=== PATIENT | male | born 1955 | race Caucasian/White ===

== ENCOUNTER 2016-06-06 18:28 | Emergency (ER) | payer BC, OTHER ==
[2016-06-06 19:04] VITALS: BP 160/91
--- NOTE | 2016-06-06 19:17 | UC ---
Throat Pain/Nasal Blaine HPI - HPI Summary HPI Summary: 60 yo male with a 1-2 day hx of sore throat/swollen glands and CRAFT anorexia no f/c no n/v - History of Current Complaint Chief Complaint: UCGeneralIllness Stated Complaint: SORE THROAT Time Seen by Provider: 06/06/16 19:04 Onset/Duration: Sudden Onset, Gradual Onset, Lasting Days Severity: Moderate Pain Intensity: 5 Pain Scale Used: 0-10 Numeric - Allergies/Home Medications Allergies/Adverse Reactions: Allergies Allergy/AdvReac Type Severity Reaction Status Date / Time No Known Allergies Allergy Verified 06/06/16 18:58 Home Medications: Home Medications Citalopram TAB* [Celexa TAB*] 1 tab DAILY 06/06/16 [History Confirmed 06/06/16] Gabapentin CAP(*) [Neurontin 100 mg CAP(*)] 1 cap 06/06/16 [History] Meloxicam 1 tab 06/06/16 [History] Tadalafil [Cialis] 1 tab 06/06/16 [History] diPHENhydraMINE PO* [Benadryl PO*] 1 tab 06/06/16 [History] PMH/Surg Hx/FS Hx/Imm Hx Previously Healthy: Yes - Surgical History Surgical History: Yes Surgery Procedure, Year, and Place: PROSTECTOMY. RIGHT ROTATOR CUFF REPAIR. INGUINAL HERNIA REPAIR X2. VARICOSE VEINS REMOVED FROM ARMX2 - Family History Known Family History: Positive: Cardiac Disease, Hypertension - Social History Alcohol Use: Rare Substance Use Type: None Smoking Status (MU): Never Smoked Tobacco Review of Systems Constitutional: Negative Skin: Negative Eyes: Negative ENT: Sore Throat Respiratory: Negative Cardiovascular: Negative Gastrointestinal: Negative Genitourinary: Negative Motor: Negative Neurovascular: Negative Musculoskeletal: Negative Neurological: Headache Psychological: Negative All Other Systems Reviewed And Are Negative: Yes Physical Exam Triage Information Reviewed: Yes Appearance: Well-Appearing, No Pain Distress, Well-Nourished Vital Signs: Initial Vital Signs Temp 97.4 F 06/06/16 19:01 Pulse 63 06/06/16 19:01 Resp 18 06/06/16 19:01 BP 160/91 06/06/16 19:01 Pulse Ox 98 06/06/16 19:01 Vital Signs Reviewed: Yes Eyes: Positive: Conjunctiva Clear ENT: Positive: Hearing grossly normal, Pharyngeal erythema, TMs normal, Other: - midline uvula. Negative: Nasal congestion, Nasal drainage, Tonsillar swelling , Tonsillar exudate, Trismus, Muffled/hoarse voice Dental: Positive: Cervical Lymphadenopathy Neck: Positive: Supple, Enlarged Nodes @ - tender ant cervical nodes Respiratory: Positive: Lungs clear, Normal breath sounds, No respiratory distress Cardiovascular: Positive: RRR, No Murmur, Pulses Normal Musculoskeletal: Positive: ROM Intact, No Edema Neurological: Positive: Alert Psychological Exam: Normal Skin Exam: Normal Throat Pain/Nasal Course/Dx - Differential Dx/Diagnosis Provider Diagnoses: acute pharyngitis Discharge - Discharge Plan Condition: Stable Disposition: HOME Patient Education Materials: Pharyngitis (ED) Referrals: Rena Xiong [Primary Care Provider] - 3 Days (if not better) Additional Instructions: rest fluids tylenol or advil
[2016-06-06] MEDS ORDERED: Cephalexin CAP* 500 MG PO ONE (19:35)
[2016-06-06] MEDS ORDERED: Cephalexin CAP* 500 MG ONE (19:44)
[2016-06-06] MEDS ORDERED: Cephalexin CAP* 500 MG PO SCH (21:00)
== END 2016-06-06 19:58 | disposition home or self-care (01) ==
LOC: UCEAST 18:28
DX: J02.9 Acute pharyngitis, unspecified (principal); R59.9 Enlarged lymph nodes, unspecified; R51 Headache; R63.0 Anorexia
CPT/HCPCS: 87651; 99212; A9270-GY; G0463

== ENCOUNTER 2016-09-13 10:06 | Emergency (ER) | payer BC, OTHER ==
[2016-09-13 10:30] VITALS: BP 130/77
--- NOTE | 2016-09-13 11:02 | UC ---
Throat Pain/Nasal Blaine HPI - HPI Summary HPI Summary: This is a 61 yo gentleman with GERD, depression and h/o prostate CA who presented with a 2-3 d history of sinus congestion. No cough, SOB. No ST. No fevers. He has been taking Flonase and Sudafed for the last 24 hrs with come relief. Work colleagues have been sick recently with similar sx's - History of Current Complaint Chief Complaint: UCGeneralIllness Stated Complaint: SINUS COMPLAINT - Allergies/Home Medications Allergies/Adverse Reactions: Allergies Allergy/AdvReac Type Severity Reaction Status Date / Time No Known Allergies Allergy Verified 09/13/16 10:21 PMH/Surg Hx/FS Hx/Imm Hx GI/ History Of: Reports: Gastroesophageal Reflux Psychological History Of: Reports: Depression Cancer History Of: Reports: Prostate Cancer - Surgical History Surgical History: Yes Surgery Procedure, Year, and Place: PROSTECTOMY. RIGHT ROTATOR CUFF REPAIR. INGUINAL HERNIA REPAIR X2. VARICOSE VEINS REMOVED FROM [facility]2 - Family History Known Family History: Positive: Cardiac Disease, Hypertension - Social History Alcohol Use: Daily Alcohol Amount: 2 beers/ day Substance Use Type: None Smoking Status (MU): Never Smoked Tobacco - Immunization History Most Recent Influenza Vaccination: 2016 Review of Systems Constitutional: Negative Skin: Negative Eyes: Negative ENT: Nasal Discharge Respiratory: Negative Cardiovascular: Negative Gastrointestinal: Negative Genitourinary: Negative Motor: Negative Neurovascular: Negative Musculoskeletal: Negative Neurological: Negative Psychological: Negative All Other Systems Reviewed And Are Negative: Yes Physical Exam Triage Information Reviewed: Yes Appearance: Well-Appearing Vital Signs: Initial Vital Signs Temp 98.8 F 09/13/16 10:23 Pulse 79 09/13/16 10:23 Resp 18 09/13/16 10:23 BP 130/77 09/13/16 10:23 Pulse Ox 97 09/13/16 10:23 Vital Signs Reviewed: Yes ENT: Positive: Pharynx normal, Nasal congestion, TM dull, Other: - mild sinus TTP diffusely across both sides of his face. Negative: Tonsillar swelling, Tonsillar exudate Neck: Positive: Supple, Nontender Respiratory: Positive: Chest non-tender, Lungs clear, Normal breath sounds Cardiovascular: Positive: RRR, No Murmur Skin Exam: Normal Throat Pain/Nasal Course/Dx - Course Course Of Treatment: 61 yo gentleman with 2 d h/o congestion without fever. Likely viral. Recommend continued use of decongestants and additional supportive care measures. - Differential Dx/Diagnosis Differential Diagnosis/HQI/PQRI: Laryngitis, Pharyngitis, Sinusitis, Tonsillitis , URI Provider Diagnoses: URI Discharge - Discharge Plan Condition: Stable Disposition: HOME Patient Education Materials: Cold Symptoms (ED) Referrals: Rena Xiong [Primary Care Provider] - If Needed Additional Instructions: Activity: As tolerated Instructions: 1. Continue Sudafed and Flonase as you have been 2. Symptoms should improve in 5-7 days
== END 2016-09-13 11:02 | disposition home or self-care (01) ==
LOC: UCEAST 10:06
DX: J06.9 Acute upper respiratory infection, unspecified (principal); K21.9 Gastro-esophageal reflux disease without esophagitis; F32.9 Major depressive disorder, single episode, unspecified; Z85.46 Personal history of malignant neoplasm of prostate
CPT/HCPCS: 99211; G0463

== ENCOUNTER 2017-12-31 09:03 | Emergency (ER) | payer BC, OTHER ==
[2017-12-31 09:25] VITALS: BP 147/82
--- NOTE | 2017-12-31 09:48 | UC ---
Ear Complaint HPI - HPI Summary HPI Summary: L ear pain and pressure x 3 days and swollen glands on L side of neck. + head cold but no sore throat. - History of Current Complaint Chief Complaint: UCEar Stated Complaint: EAR COMPLAINT Time Seen by Provider: 12/31/17 09:41 Hx Obtained From: Patient Onset/Duration: Gradual Onset Pain Intensity: 7 Aggravating Factors: Nothing Alleviating Factors: Nothing Associated Signs/Symptoms: Negative: Discharge, Hearing Loss, Foreign Body Sensation, Trauma to Ear - Allergies/Home Medications Allergies/Adverse Reactions: Allergies Allergy/AdvReac Type Severity Reaction Status Date / Time No Known Allergies Allergy Verified 12/31/17 09:21 PMH/Surg Hx/FS Hx/Imm Hx GI/ History: Gastroesophageal Reflux Psychological History: Depression - Surgical History Surgical History: Yes Surgery Procedure, Year, and Place: PROSTECTOMY. RIGHT ROTATOR CUFF REPAIR. INGUINAL HERNIA REPAIR X2. VARICOSE VEINS REMOVED FROM [facility]MX2 - Family History Known Family History: Positive: Cardiac Disease, Hypertension - Social History Lives: With Family Alcohol Use: Daily Alcohol Amount: 2 beers/ day Substance Use Type: None Smoking Status (MU): Never Smoked Tobacco - Immunization History Most Recent Influenza Vaccination: 2016 Vaccination Up to Date: Yes Review of Systems Constitutional: Negative Skin: Negative Eyes: Negative ENT: Ear Ache - L, Sinus Congestion Respiratory: Negative Cardiovascular: Negative Gastrointestinal: Negative Genitourinary: Negative Motor: Negative Neurovascular: Negative Musculoskeletal: Negative Neurological: Negative Psychological: Negative Is Patient Immunocompromised?: No All Other Systems Reviewed And Are Negative: Yes Physical Exam Triage Information Reviewed: Yes Appearance: Well-Appearing Vital Signs: Initial Vital Signs Temp 97.6 F 12/31/17 09:18 Pulse 67 12/31/17 09:18 Resp 15 12/31/17 09:18 BP 147/82 12/31/17 09:18 Pulse Ox 97 12/31/17 09:18 Vital Signs Reviewed: Yes Eyes: Positive: Conjunctiva Clear ENT: Positive: Pharynx normal, Nasal congestion, TMs normal - R, TM bulging - L , TM dull - L, Other - R ear canal clear. L canal is painful on speculum exam and with pressure to tragus plus mild erythema. No mastoid tenderness or auricuar adenopathy. No rash around ear/neck.. Negative: Nasal drainage Neck: Positive: Supple, Tenderness @ - L peritonsilar nodes, Enlarged Nodes @ - L peritonsilar nodes Respiratory: Positive: Lungs clear, Normal breath sounds Cardiovascular: Positive: RRR, No Murmur Abdomen Description: Positive: Nontender, No Organomegaly, Soft Bowel Sounds: Positive: Present Musculoskeletal: Positive: ROM Intact Neurological: Positive: Alert Psychological: Positive: Age Appropriate Behavior Skin Exam: Normal Ear Complaint Course/Dx - Differential Dx/Diagnosis Provider Diagnoses: L OE and L serous OM. Possible early L OM Discharge - Sign-Out/Discharge Documenting (check all that apply): Patient Departure All imaging exams completed and their final reports reviewed: No Studies - Discharge Plan Condition: Stable Disposition: HOME Prescriptions: Amoxicillin PO (*) [Amoxicillin 875 MG (*)] 875 mg PO BID #14 tab Ciproflox/Dexameth OTIC.SUSP* [Ciprodex OTIC.SUSP*] 4 drop .SEE ORDER BID 7 Days #1 btl Patient Education Materials: Otitis Externa (DC), Serous Otitis Media (ED) Referrals: Nay Posey [Primary Care Provider] - 7 Days - Billing Disposition and Condition Condition: STABLE Disposition: Home
== END 2017-12-31 10:01 | disposition home or self-care (01) ==
LOC: UCCORT 09:03
DX: H60.92 Unspecified otitis externa, left ear (principal); H65.92 Unspecified nonsuppurative otitis media, left ear
CPT/HCPCS: 99212; G0463

== ENCOUNTER 2018-02-19 10:51 | Emergency (ER) | payer BC, OTHER ==
[2018-02-19 11:06] VITALS: BP 112/73
--- NOTE | 2018-02-19 11:21 | UC ---
UC General HPI - HPI Summary HPI Summary: PT IS C/O A 4 DAY HX L SINUS PAIN/CONGESTION, SORE THROAT AND L EAR PAIN. HX SINUSITIS AND THIS FEELS THE SAME. NO FEVER AND SORE THROAT IS FROM POST NASAL DRIP. JUST STARTED FLONASE THIS AM. - History of Current Complaint Chief Complaint: UCRespiratory Stated Complaint: SINUS LEFT EAR COMPLAINT Time Seen by Provider: 02/19/18 11:09 Hx Obtained From: Patient Onset/Duration: Gradual Onset Timing: Constant Pain Intensity: 6 - Allergy/Home Medications Allergies/Adverse Reactions: Allergies Allergy/AdvReac Type Severity Reaction Status Date / Time No Known Allergies Allergy Verified 02/19/18 11:00 Home Medications: Home Medications Cholesterol Med 1 tab QAM 02/19/18 [History Confirmed 02/19/18] PMH/Surg Hx/FS Hx/Imm Hx - Additional Past Medical History Additional PMH: SINUSITIS Endocrine History: Dyslipidemia - Surgical History Surgical History: Yes Surgery Procedure, Year, and Place: PROSTECTOMY. RIGHT ROTATOR CUFF REPAIR. INGUINAL HERNIA REPAIR X2. VARICOSE VEINS REMOVED FROM [facility]MX2 - Family History Known Family History: Positive: Cardiac Disease, Hypertension - Social History Occupation: Employed Full-time Alcohol Use: Occasionally Alcohol Amount: 2 beers/ day Substance Use Type: None Smoking Status (MU): Never Smoked Tobacco - Immunization History Most Recent Influenza Vaccination: 2016 Most Recent Tetanus Shot: UTD Vaccination Up to Date: Yes Review of Systems Constitutional: Negative Skin: Negative Eyes: Negative ENT: Sore Throat, Ear Ache, Sinus Congestion, Sinus Pain/Tenderness Respiratory: Negative Cardiovascular: Negative Gastrointestinal: Negative Genitourinary: Negative Motor: Negative Neurovascular: Negative Musculoskeletal: Negative Neurological: Negative Psychological: Negative Is Patient Immunocompromised?: No All Other Systems Reviewed And Are Negative: Yes Physical Exam Triage Information Reviewed: Yes Appearance: Well-Appearing Vital Signs: Initial Vital Signs Temp 97.2 F 02/19/18 11:02 Pulse 66 02/19/18 11:02 Resp 16 02/19/18 11:02 BP 112/73 02/19/18 11:02 Pulse Ox 98 02/19/18 11:02 Eye Exam: Normal Eyes: Positive: Conjunctiva Clear ENT: Positive: Pharynx normal, Nasal congestion, TMs normal - cANALS CLEAR AND NO MASTOID TENDERNESS, Sinus tenderness - LEFT, Other - TIP OF NOSE IS PINK FROM BLOWING. Negative: Nasal drainage Neck: Positive: Supple, Nontender Respiratory: Positive: Lungs clear, Normal breath sounds Cardiovascular: Positive: RRR, No Murmur Abdomen Description: Positive: Nontender, No Organomegaly, Soft Bowel Sounds: Positive: Present Musculoskeletal: Positive: ROM Intact Neurological: Positive: Alert Psychological: Positive: Age Appropriate Behavior Skin Exam: Normal Course/Dx - Course Course Of Treatment: ill x 4 days with no fever or purulent drainage but pt states c/w sinusitis. will tx with flonase and decongestant. If that tx fails, will add the antibiotic. - Differential Dx - Multi-Symptom Provider Diagnoses: uri, OTALGIA Discharge - Sign-Out/Discharge Documenting (check all that apply): Patient Departure All imaging exams completed and their final reports reviewed: No Studies - Discharge Plan Condition: Stable Disposition: HOME Prescriptions: Amoxicillin/Clavulanate TAB* [Augmentin TAB 875*] 875 mg PO BID 10 Days #20 tab Patient Education Materials: Upper Respiratory Infection (ED), Earache (ED) Referrals: Nay Posey [Primary Care Provider] - 7 Days Additional Instructions: USE AN OVER THE COUNTER NASAL DECONGESTANT SUCH AFRIN PER LABEL X 3 DAYS THEN STOP IT. USE FLONASE DAILY PER LABEL. IF YOU ARE NOT IMPROVING OVER THE NEXT 2-3 DAYS , START THE ANTIBIOTIC(AUGMENTIN ). START IT SOONER FOR ANY WORSENING. - Billing Disposition and Condition Condition: STABLE Disposition: Home
== END 2018-02-19 11:26 | disposition home or self-care (01) ==
LOC: UCCORT 10:51
DX: J06.9 Acute upper respiratory infection, unspecified (principal); H92.02 Otalgia, left ear; E78.5 Hyperlipidemia, unspecified
CPT/HCPCS: 99212; G0463

== ENCOUNTER 2019-02-07 19:03 | Emergency (ER) | payer BC ==
[2019-02-07 20:22] VITALS: BP 134/86
[2019-02-07] MEDS ORDERED: Cephalexin CAP* 500 MG PO ONE (20:56)
--- NOTE | 2019-02-07 20:58 | UC ---
Skin Complaint HPI - HPI Summary HPI Summary: 63 yo male with itchy foot rash x 1 week now with left 4th toe redness/swelling extending to dorsum of left foot no hx cellulitis or MRSA no f/c no n/v or myalgias - History of Current Complaint Chief Complaint: UCSkin Time Seen by Provider: 02/07/19 20:49 Stated Complaint: FOOT COMPLAINT Hx Obtained From: Patient Onset/Duration: Sudden Onset, Lasting Days Timing: Constant Onset Severity: Mild Current Severity: Moderate Pain Intensity: 2 Pain Scale Used: 0-10 Numeric Location: Foot (Right), Foot (Left) Character: Swelling, Pruritus, Redness, Raised Aggravating Factor(s): Nothing Alleviating Factor(s): Nothing Associated Signs & Symptoms: Positive: Rash - Allergy/Home Medications Allergies/Adverse Reactions: Allergies Allergy/AdvReac Type Severity Reaction Status Date / Time No Known Allergies Allergy Verified 02/07/19 20:17 Home Medications: Home Medications Aspirin EC TAB* [Ecotrin EC Low Dose 81 MG*] 81 mg PO DAILY 02/07/19 [History Confirmed 02/07/19] Atorvastatin* [Lipitor*] 10 mg PO QPM 02/07/19 [History Confirmed 02/07/19] Escitalopram * [Lexapro 5 mg (NF)] 1 tab DAILY 02/07/19 [History Confirmed 02/07] Propranolol TAB* [Inderal TAB*] 1 tab DAILY 02/07/19 [History Confirmed 02/07/19 ] Tadalafil [Cialis] 1 tab DAILY PRN 02/07/19 [History Confirmed 02/07/19] PMH/Surg Hx/FS Hx/Imm Hx Previously Healthy: Yes Endocrine History: Dyslipidemia Cardiovascular History: Hypertension - Surgical History Surgical History: Yes Surgery Procedure, Year, and Place: PROSTECTOMY. RIGHT ROTATOR CUFF REPAIR. INGUINAL HERNIA REPAIR X2. VARICOSE VEINS REMOVED FROM ARMX2 - Family History Known Family History: Positive: Cardiac Disease, Hypertension - Social History Alcohol Use: Daily Alcohol Amount: 2 beers/ day Substance Use Type: None Smoking Status (MU): Never Smoked Tobacco - Immunization History Most Recent Influenza Vaccination: 2016 Most Recent Tetanus Shot: unknown Vaccination Up to Date: Yes Review of Systems All Other Systems Reviewed And Are Negative: Yes Constitutional: Positive: Negative Skin: Positive: Rash Eyes: Positive: Negative ENT: Positive: Negative Respiratory: Positive: Negative Cardiovascular: Positive: Negative Gastrointestinal: Positive: Negative Genitourinary: Positive: Negative, Hematuria, Urgency Motor: Positive: Negative Neurovascular: Positive: Negative Musculoskeletal: Positive: Negative Neurological: Positive: Negative Psychological: Positive: Negative Physical Exam Triage Information Reviewed: Yes Appearance: Well-Appearing, No Pain Distress, Well-Nourished Vital Signs: Initial Vital Signs Temp 97.7 F 02/07/19 20:17 Pulse 71 02/07/19 20:17 Resp 16 02/07/19 20:17 BP 134/86 02/07/19 20:17 Pulse Ox 100 02/07/19 20:17 Vital Signs Reviewed: Yes Eyes: Positive: Conjunctiva Clear ENT: Positive: Hearing grossly normal. Negative: Nasal congestion, Nasal drainage, Trismus, Muffled voice, Hoarse voice Dental Exam: Normal Neck: Positive: Supple Respiratory: Positive: Lungs clear, Normal breath sounds, No respiratory distress, No accessory muscle use Cardiovascular: Positive: RRR, No Murmur Musculoskeletal: Positive: ROM Intact, No Edema Neurological: Positive: Alert Psychological Exam: Normal Skin Exam: Other - see image Images Feet (Multiple View): 1 - interdigital TP 2 - red/swollen 3 - ertyema dorsum of foot Course/Dx - Diagnoses Provider Diagnosis: Tinea pedis of both feet, Cellulitis of left foot Discharge ED - Sign-Out/Discharge Documenting (check all that apply): Patient Departure All imaging exams completed and their final reports reviewed: No Studies - Discharge Plan Condition: Stable Disposition: HOME Prescriptions: Cephalexin CAP* [Keflex CAP*] 500 mg PO QID #28 cap Patient Education Materials: Athlete's Foot (ED), Cellulitis (ED) Referrals: Nay Posey [Primary Care Provider] - 2 Days () Additional Instructions: EPSOM Salt soaks 2x day for 10-15 minutes gently dry feet apply lotrimen AF or equivalent between toes do the above for 2-3 weeks recheck if 2-3 days if cellulitis not improved - Billing Disposition and Condition Condition: STABLE Disposition: Home
== END 2019-02-07 21:10 | disposition home or self-care (01) ==
LOC: UCCORT 19:03
DX: B35.3 Tinea pedis (principal); L03.116 Cellulitis of left lower limb; I10 Essential (primary) hypertension; E78.5 Hyperlipidemia, unspecified; Z79.899 Other long term (current) drug therapy
CPT/HCPCS: 99212; A9270-GY; G0463